=== PATIENT | female | born 1980 | race Caucasian/White ===

== ENCOUNTER 2017-04-20 07:34 | Emergency (ER) | END 2017-04-20 11:33 | disposition home or self-care (01) ==

== ENCOUNTER 2018-08-28 09:48 | Emergency (ER) | payer OTHER ==
[~2018-08-28] VITALS: Ht 157.5 cm; Wt 70.0 kg
[~2018-08-28 09:48] MED LIST: FERR240T9 PO; FIORICET PO; FOLI-49 PO; IBUP-1542 PO; PRED5TAB PO; PRENAT PO
[2018-08-28 09:51] VITALS: BP 149/86; PULSE 77; RESP 16; Ht 157.5 cm; Wt 70.0 kg
--- NOTE | 2018-08-28 10:26 | ERD ---
ER Documentation Chief Complaint Chief Complaint pt is bib right ear pain for a few days HPI 38-year-old female is here for right-sided ear fullness and decreased hearing for the past week. No bleeding or drainage from the ear. No fever or recent illness. She is tried [id number] ear wax removal without any success. ROS All systems reviewed and are negative except as per history of present illness. Medications Home Meds Active Scripts Neomycin/Polymyxin/Hydrocort* (Cortisporin* Otic) 10 Ml Susp, 4 DROP RIGHT EAR QID for 7 Days, EA Prov:NAVEEN KIMBALL PA-C 08/28/18 Ibuprofen* (Motrin*) 600 Mg Tab, 600 MG PO Q6, #20 TAB Prov:YU CARNEY MD 04/20/17 Acetamin/Butalbital/Caffeine* (Fioricet*) 1 Tab Tab, 1 TAB PO Q4H PRN for PAIN LEVEL 1-5, #30 TAB Prov:MOR ROBERTSON PA-C 10/29/15 Reported Medications Folic Acid* (Folic Acid*) 1 Mg Tablet, 1 MG PO DAILY, TAB 08/06/15 Ferrous Gluconate (Iron) 1 Tab Tablet, 1 TAB PO DAILY, TAB 08/06/15 Multivit/Min/Fol Ac/Iron/Pren* ( S*) 1 Tab Tab, 1 TAB PO DAILY, TAB 08/06/15 Prednisone* (Prednisone*) 5 Mg Tab, 5 MG PO DAILY, TAB 08/06/15 Allergies Allergies: Coded Allergies: No Known Allergy (Verified , 09/08/15) PMhx/Soc History of Surgery: No Anesthesia Reaction: No Hx Neurological Disorder: No Hx Respiratory Disorders: No Hx Cardiac Disorders: No Hx Psychiatric Problems: No Hx Miscellaneous Medical Probl: Yes (arthritis) Hx Alcohol Use: No Hx Substance Use: No Hx Tobacco Use: No FmHx Family History: No diabetes Physical Exam Vitals Vital Signs Date Temp Pulse Resp B/P (MAP) Pulse Ox O2 O2 Flow FiO2 Time Delivery Rate 08/28/18 98.9 77 16 149/86 98 09:51 (107) Physical Exam Const: No acute distress Head: Atraumatic Eyes: Normal Conjunctiva ENT: Cerumen impaction bilaterally worse on the right side which is completely occluded secondary to cerumen impaction Neck: Full range of motion. No meningismus. Resp: Clear to auscultation bilaterally Cardio: Regular rate and rhythm, no murmurs Procedures/MDM Patient has cerumen impaction. Ear lavage performed. Patient felt much better when is able to hear better after the ear lavage. I really looked in the ear and there was some irritation to the canal. I gave her a prescription for Cortisporin eardrops. Tympanic membrane was within normal limits. Patient counseled regarding my diagnostic impression and care plan. Prior to discharge all questions answered. Pt agrees with treatment plan and understands strict return precautions. Pt is instructed to follow up with primary care provider within 24-48 hours. Precautionary instructions provided including instructions to return to the ER if not improving or for any worsening or changing symptoms or concerns. Departure Diagnosis: Primary Impression: Cerumen impaction Condition: Stable NAVEEN KIMBALL PA-C Aug 28, 2018 10:26
[2018-08-28] MEDS ORDERED: NPH10OT RIGHT EAR (10:48)
== END 2018-08-28 11:09 | disposition home or self-care (01) ==
LOC: FTE 09:48
DX: H61.21 Impacted cerumen, right ear (principal)
CPT/HCPCS: 69209; Z7502